=== PATIENT | male | born 1945 | race Two or more races ===

== ENCOUNTER → 2017-11-24 09:21 | Outpatient (CLI) | payer OTHER ==
[~2017-11-24 09:21] MED LIST: LOSARTAN POTASS50 MG PO; NORVASC10 MG PO; SYNTHROID200 MCG PO
== END | disposition home or self-care (01) ==
LOC: LAB 09:21
DX: C73 Malignant neoplasm of thyroid gland (principal); Z51.81 Encounter for therapeutic drug level monitoring

== ENCOUNTER 2017-11-25 07:39 | Outpatient (CLI) | payer OTHER | END 2017-11-25 07:44 | disposition home or self-care (01) | LOC: TOM 07:39 | DX: C73 Malignant neoplasm of thyroid gland (principal) | CPT/HCPCS: 70491; Q9965 ==

== ENCOUNTER 2017-12-03 08:30 | Outpatient (CLI) | payer OTHER | END 2017-12-03 08:36 | disposition home or self-care (01) | LOC: SONOGRAMA 08:30 | DX: C73 Malignant neoplasm of thyroid gland (principal) ==

== ENCOUNTER 2017-12-29 07:25 | Outpatient (CLI) | payer OTHER ==
[2017-12-31] MEDS ORDERED: FINASTERIDE5 MG PO (09:13)
[2017-12-31] MEDS ORDERED: TAMS0.4C PO (09:13)
[2017-12-31] MEDS ORDERED: CALCITRIOL0.5 MCG PO (09:13)
== END 2017-12-29 07:30 | disposition home or self-care (01) ==
LOC: RAD 07:25
DX: J45.998 Other asthma (principal)

== ENCOUNTER 2018-01-06 05:30 | Inpatient (IN) | payer OTHER ==
[~2018-01-06] VITALS: Ht 170.2 cm; Wt 88.5 kg
[~2018-01-06 05:30] MED LIST changes: +CALCITRIOL0.5 MCG PO; +FINASTERIDE5 MG PO; +TAMS0.4C PO
[2018-01-07] MEDS ORDERED: PERCOCET 5-3251 EACH PO (13:07)
[2018-01-07] MEDS ORDERED: KEFLEX500 MG PO (13:07)
== END 2018-01-07 13:29 | disposition home or self-care (01) | DRG 629 ==
LOC: CIR.AMB 05:30 → O/R 12:01 → SURH 12:01 → CIR.AMB 13:00 → SURH 14:51
PROVIDERS: Surgery
PROC: 07T10ZZ Resection of Right Neck Lymphatic, Open Approach (ICD-10-PCS; principal; 2018-01-06 13:00)
DX: C73 Malignant neoplasm of thyroid gland (principal); C77.0 Secondary and unspecified malignant neoplasm of lymph nodes of head, face and neck; I11.9 Hypertensive heart disease without heart failure; N40.0 Benign prostatic hyperplasia without lower urinary tract symptoms; E78.4 Other hyperlipidemia; E89.0 Postprocedural hypothyroidism

== ENCOUNTER 2018-08-11 11:12 | Outpatient (CLI) | payer OTHER ==
[~2018-08-11 11:12] MED LIST changes: +KEFLEX500 MG PO; +PERCOCET 5-3251 EACH PO
== END 2018-08-11 11:18 | disposition home or self-care (01) ==
LOC: LAB 11:12
DX: N20.0 Calculus of kidney (principal); Z51.81 Encounter for therapeutic drug level monitoring

== ENCOUNTER 2018-08-12 09:42 | Outpatient (CLI) | payer OTHER | END 2018-08-12 09:58 | disposition home or self-care (01) | LOC: TOM 09:42 | DX: D09.3 Carcinoma in situ of thyroid and other endocrine glands (principal); C73 Malignant neoplasm of thyroid gland | CPT/HCPCS: 70492; Q9965 ==

== ENCOUNTER 2018-08-18 16:36 | Outpatient (CLI) | payer OTHER | END 2018-08-18 16:51 | disposition home or self-care (01) | LOC: SONOGRAMA 16:36 | DX: C07 Malignant neoplasm of parotid gland (principal); D11.0 Benign neoplasm of parotid gland; D37.030 Neoplasm of uncertain behavior of the parotid salivary glands; Z85.850 Personal history of malignant neoplasm of thyroid ==

== ENCOUNTER 2018-09-17 14:49 | Outpatient (CLI) | payer OTHER ==
[~2018-09-17] VITALS: Ht 170.2 cm; Wt 86.2 kg
== END 2018-09-17 15:10 | disposition home or self-care (01) ==
LOC: OFIC 805 14:49
DX: M26.69 Other specified disorders of temporomandibular joint (principal); M62.830 Muscle spasm of back

== ENCOUNTER 2018-10-21 09:17 | Outpatient (CLI) | payer OTHER | END 2018-10-21 09:25 | disposition home or self-care (01) | LOC: TOM 09:17 | DX: R93.89 Abnormal findings on diagnostic imaging of other specified body structures (principal); C73 Malignant neoplasm of thyroid gland | CPT/HCPCS: 71260; Q9965 ==

== ENCOUNTER → 2020-05-30 | Outpatient (CLI) | payer OTHER | END | disposition home or self-care (01) | LOC: TOM 06:55 | PROVIDERS: ATTEND Internal Medicine Cardiovascular Disease | DX: K76.0 Fatty (change of) liver, not elsewhere classified (principal); E03.8 Other specified hypothyroidism; I11.9 Hypertensive heart disease without heart failure; Q44.6 Cystic disease of liver | CPT/HCPCS: 74170; Q9965 ==

== ENCOUNTER 2021-07-27 12:34 | Emergency (ER) | payer OTHER ==
[~2021-07-27] VITALS: Ht 170.2 cm; Wt 91.2 kg
[2021-07-27] MEDS ORDERED: SIMVASTATIN40 MG (12:51)
[2021-07-27] MEDS ORDERED: LOSARTAN-HCTZ1 EAC1 (12:51)
== END 2021-07-27 16:25 ==
LOC: ER 12:34
DX: R20.0 Anesthesia of skin (principal); R20.2 Paresthesia of skin; I10 Essential (primary) hypertension; Z85.850 Personal history of malignant neoplasm of thyroid

== ENCOUNTER → 2023-02-11 | Outpatient (CLI) | payer OTHER ==
[~2023-02-11] MED LIST changes: +LOSARTAN-HCTZ1 EAC1; +SIMVASTATIN40 MG
== END | disposition home or self-care (01) ==
LOC: MRI 08:03
PROVIDERS: ATTEND Specialist
DX: I63.9 Cerebral infarction, unspecified (principal)
CPT/HCPCS: 70551

== ENCOUNTER 2023-03-10 08:13 | Outpatient (CLI) | payer OTHER | END 2023-03-10 08:15 | disposition home or self-care (01) | LOC: NUCLEAR 08:13 | PROVIDERS: ATTEND Specialist | DX: I63.9 Cerebral infarction, unspecified (principal) ==

== ENCOUNTER 2023-05-26 07:17 | Outpatient (CLI) | payer OTHER | END 2023-05-26 07:21 | disposition home or self-care (01) | LOC: NUCLEAR 07:17 | PROVIDERS: ATTEND Internal Medicine Cardiovascular Disease | DX: I25.10 Atherosclerotic heart disease of native coronary artery without angina pectoris (principal) | CPT/HCPCS: 78452; 93017; A9500 ==

== ENCOUNTER → 2024-11-16 06:29 | Outpatient (CLI) | payer OTHER ==
[2024-11-16 07:07] LABS: EOS # 0.08 (0.04-0.54); EOS % 1.8 % (0.7-7.0); HEMATOCRIT 41.7 % (40.1-51.0); HEMOGLOBIN 14.5 g/dL (13.7-17.5); LYMPH # 1.89 (1.18-3.74); LYMPH % 43.4 % (19.3-53.1); MEAN CORPUSCULAR HEMOGLOBIN 30.3 pg (25.6-32.2); MONO # 0.42 (0.24-0.82); MONO % 9.7 % (4.7-12.5); NEUT # 1.94 (1.56-6.13); NEUT % 44.6 % (34.0-71.1); PLATELET COUNT 178 K/uL (163-369); RED BLOOD COUNT 4.78 M/uL (4.63-6.08); RED CELL DISTRIBUTION WIDTH 13.5 % (11.6-14.4)
[2024-11-16 07:34] LABS: URINE APPEARANCE Clear; URINE BILIRRUBIN Negative (NEGATIVE); URINE BLOOD Negative; URINE COLOR Yellow; URINE GLUCOSE Negative (NEGATIVE); URINE KETONE Negative (NEGATIVE); URINE LEUKOCYTE Negative; URINE NITRATE Negative; URINE PROTEIN Negative (NEGATIVE)
[2024-11-16 07:37] LABS: URINE RBC 5.7 uL (0.0-20.8)
[2024-11-16 07:40] LABS: URINE BACTERIA 2.4 uL (0.0-1933); URINE EPITHELIAL CELLS 0.9 uL (0.0-38.8); URINE WBC 0.6 uL (0.0-23.2)
[2024-11-16 07:59] LABS: ALBUMIN 4.2 gm/dL (3.4-5.0); BILIRUBIN TOTAL 1.36 mg/dL (0.3-1.2); CALCIUM 8.9 mg/dL (8.5-10.1); CHOL HDL RATIO 2.3 (0-5.0); CREATININE SERUM 1.07 mg/dL (0.70-1.30); GFR 66.49; GLOBULINA 2.8 G/DL (2.4-3.5); POTASSIUM 3.21 mEq/L (3.5-5.1); T4 FREE 1.23 NG/ML (0.76-1.46)
[2024-11-16 09:33] LABS: TSH 0.609 uIU/mL (0.358-3.74)
[2024-11-16 10:06] LABS: FOLIC ACID > 20.00 ng/ml (4.78-20)
[2024-11-16 18:22] LABS: FERRITIN 19.5 NG/ML (26-388)
[2024-11-17 09:08] LABS: ANTI THYROID PEROXIDASE 19 IU/mL (0-34); TRANSFERIN 322 mg/dL (177-329)
[2024-11-17 10:28] LABS: MANUAL PLATELET COUNT 196
[2024-11-17 11:12] LABS: kappa lambda r 1.55 (0.26-1.65); kappa light 22.2 mg/L (3.3-19.4); lambda light 14.3 mg/L (5.7-26.3)
[2024-11-18 11:12] LABS: IMM A 165 mg/dL (61-437); IMM G 982 mg/dL (603-1613); IMM M 197 mg/dL (15-143); a:g ratio 1.5 (0.7-1.7); alpha 1 g 0.2 g/dL (0.0-0.4); alpha 2 0.5 g/dL (0.4-1.0); beta g 0.9 g/dL (0.7-1.3); gamma g 1.1 g/dL (0.4-1.8); globulin t 2.7 g/dL (2.2-3.9); m spike Not Observed g/dL (Not Observed); prot total 6.7 g/dL (6.0-8.5)
== END | disposition home or self-care (01) ==
LOC: LAB 06:29
PROVIDERS: ATTEND Internal Medicine Hematology & Oncology
DX: D47.2 Monoclonal gammopathy (principal); I10 Essential (primary) hypertension; N40.1 Benign prostatic hyperplasia with lower urinary tract symptoms; E03.8 Other specified hypothyroidism; C73 Malignant neoplasm of thyroid gland; E78.2 Mixed hyperlipidemia; D50.8 Other iron deficiency anemias; R79.9 Abnormal finding of blood chemistry, unspecified; R74.02 Elevation of levels of lactic acid dehydrogenase [LDH]; K76.89 Other specified diseases of liver; D51.0 Vitamin B12 deficiency anemia due to intrinsic factor deficiency; E06.3 Autoimmune thyroiditis; C90.00 Multiple myeloma not having achieved remission; D53.9 Nutritional anemia, unspecified; N39.0 Urinary tract infection, site not specified; N36.2 Urethral caruncle; E11.9 Type 2 diabetes mellitus without complications; E04.9 Nontoxic goiter, unspecified

== ENCOUNTER 2024-12-19 06:08 | Outpatient (CLI) | payer OTHER ==
[2024-12-19 08:00] LABS: BASO % 0.0 % (0.1-1.2); EOS # 0.09 (0.04-0.54); EOS % 1.5 % (0.7-7.0); LYMPH # 2.00 (1.18-3.74); LYMPH % 32.4 % (19.3-53.1); MEAN PLATELET VOLUME 9.80 fl (9.4-12.4); MONO # 0.57 (0.24-0.82); MONO % 9.2 % (4.7-12.5); NEUT # 3.45 (1.56-6.13); NEUT % 55.8 % (34.0-71.1); RED CELL DISTRIBUTION WIDTH 13.6 % (11.6-14.4)
[2024-12-19 09:06] LABS: ALT/SGPT 28.0 U/L (12-78); AST/SGOT 14.0 U/L (15-37); BILIRUBIN TOTAL 0.97 mg/dL (0.3-1.2); BUN CREA RATIO 21.0 (7.0-25.0); CREATININE SERUM 1.09 mg/dL (0.70-1.30); GFR 65.09; GLOBULINA 2.5 G/DL (2.4-3.5); GLUCOSE FASTING 95.0 mg/dL (65-100); LDH 158.0 U/L (87-241); OSMOLALITY SERUM 287.0 MOSM/KG (275-295); PROSTATIC SPECIFIC ANTIGEN 1.78 NG/ML (0.010-4.00)
== END 2024-12-19 06:14 | disposition home or self-care (01) ==
LOC: LAB 06:08
PROVIDERS: ATTEND Internal Medicine Hematology & Oncology
DX: C73 Malignant neoplasm of thyroid gland (principal); D51.1 Vitamin B12 deficiency anemia due to selective vitamin B12 malabsorption with proteinuria; D51.0 Vitamin B12 deficiency anemia due to intrinsic factor deficiency; I10 Essential (primary) hypertension; N40.1 Benign prostatic hyperplasia with lower urinary tract symptoms; E03.8 Other specified hypothyroidism; E78.2 Mixed hyperlipidemia; E06.3 Autoimmune thyroiditis; D50.8 Other iron deficiency anemias; R74.02 Elevation of levels of lactic acid dehydrogenase [LDH]; K76.89 Other specified diseases of liver; C90.00 Multiple myeloma not having achieved remission; R97.0 Elevated carcinoembryonic antigen [CEA]